=== PATIENT | male | born 1955 | race Caucasian/White ===

== ENCOUNTER 2018-06-07 09:37 | Emergency (ER) | payer OTHER ==
--- NOTE | 2018-06-07 10:12 | EDPHY ---
H & P Time Seen by Provider: 06/07/18 10:07 HPI/ROS: Chief complaint. Chest pain HPI. 63-year-old male presents emergency department with 3 day history of left anterior chest discomfort. It is constant. Described as dull. No radiation. No change with deep breathing or exertion. He has also had some chills and lightheadedness and shakiness over the past 3 days. No fever. He has had similar symptoms previously of chest pain and had a treadmill 6 months ago that was normal. He has no abdominal pain or nausea vomiting diarrhea. No rash. No urinary symptoms. No unusual leg pain or swelling. ROS 10 systems were reviewed and negative with the exception of the elements mentioned in the history of present illness Past Medical/Surgical History: GERD, dyslipidemia Social History: , nonsmoker, no alcohol Smoking Status: Never smoked Physical Exam: General Appearance: Alert well-developed male mild distress vital signs are stable Eyes: Pupils equal and round no pallor or injection. ENT, Mouth: Mucous membranes are moist. Respiratory: There are no retractions, lungs are clear to auscultation. Cardiovascular: Regular rate and rhythm. Gastrointestinal: Abdomen is soft and nontender, no masses, bowel sounds normal. Neurological: Awake and alert, sensory and motor exams grossly normal. Skin: Warm and dry, no rashes. Musculoskeletal: Neck is supple nontender. Extremities symmetrical, full range of motion. Psychiatric: Patient is oriented X 3, there is no agitation. Constitutional: Initial Vital Signs Temperature (C) 36.6 C 06/07/18 09:41 Heart Rate 80 06/07/18 09:41 Respiratory Rate 16 06/07/18 09:41 Blood Pressure 148/96 H 06/07/18 09:41 O2 Sat (%) 93 06/07/18 09:41 O2 Delivery Mode Room Air Allergies/Adverse Reactions: contrast dye Allergy (Severe, Uncoded 06/07/18 09:40) Anaphylaxis Home Medications: Medication Instructions Recorded Aspirin [Aspirin 81mg (OTC)] 81 mg PO DAILY 06/29/15 Ezetimibe/Simvastatin [Vytorin 1 each PO DAILY 06/29/15 10-10 mg Tablet] Medical Decision Making - Diagnostics EKG Interpretation: EKG interpreted by me shows normal sinus rhythm normal interval and axis. QRS is normal there is no significant ST elevation or depression. No arrhythmia. The rate is 66 Procedures: IV normal saline, monitor ED Course/Re-evaluation: Re-evaluation 11:30 a.m. Patient is stable. Patient and I discussed EKG and laboratory findings. We discussed treatment plan including criteria for return importance of follow-up and further evaluation. He is offered admission however feels comfortable being treated as outpatient. He expresses understanding and agreement to our conversation Differential Diagnosis: Patient has recurrent left chest pain. Currently the chest discomfort has been there for 3 days. His troponin and EKG are normal. Does not meet criteria or have symptoms suggestive of pulmonary embolus. He was concerned that he had flu or viral syndrome. His symptoms are not worse with exertion or position. Or deep breathing - Data Points Laboratory Results: Laboratory Results 06/07/18 09:54 06/07/18 09:54 06/07/18 06/07/18 06/07/18 09:57 09:54 09:54 WBC 7.23 10^3/uL 10^3/uL (3.80-9.50) RBC 5.35 10^6/uL 10^6/uL (4.40-6.38) Hgb 16.5 g/dL g/dL (13.7-17.5) Hct 46.8 % % (40.0-51.0) MCV 87.5 fL fL (81.5-99.8) MCH 30.8 pg pg (27.9-34.1) MCHC 35.3 g/dL g/dL (32.4-36.7) RDW 11.9 % % (11.5-15.2) Plt Count 231 10^3/uL 10^3/uL (150-400) MPV 9.4 fL fL (8.7-11.7) Neut % (Auto) 65.7 % % (39.3-74.2) Lymph % (Auto) 22.5 % % (15.0-45.0) [place] % (Auto) 7.2 % % (4.5-13.0) Eos % (Auto) 3.6 % % (0.6-7.6) Baso % (Auto) 0.6 % % (0.3-1.7) Nucleat RBC Rel Count 0.0 % % (0.0-0.2) Absolute Neuts (auto) 4.75 10^3/uL 10^3/uL (1.70-6.50) Absolute Lymphs (auto) 1.63 10^3/uL 10^3/uL (1.00-3.00) Absolute Monos (auto) 0.52 10^3/uL 10^3/uL (0.30-0.80) Absolute Eos (auto) 0.26 10^3/uL 10^3/uL (0.03-0.40) Absolute Basos (auto) 0.04 10^3/uL 10^3/uL (0.02-0.10) Absolute Nucleated RBC 0.00 10^3/uL 10^3/uL (0-0.01) Immature Gran % 0.4 % % (0.0-1.1) Immature Gran # 0.03 10^3/uL 10^3/uL (0.00-0.10) Sodium 141 mEq/L mEq/L (135-145) Potassium 4.3 mEq/L mEq/L (3.3-5.0) Chloride 102 mEq/L mEq/L (97-110) Carbon Dioxide 27 mEq/l mEq/l (22-31) Anion Gap 12 mEq/L mEq/L (6-14) BUN 14 mg/dL mg/dL (7-23) Creatinine 1.2 mg/dL mg/dL (0.7-1.3) Estimated GFR > 60 Glucose 109 mg/dL H mg/dL (70-100) Calcium 10.0 mg/dL mg/dL (8.5-10.4) POC Troponin I 0.01 ng/mL ng/mL (0.00-0.08) Point of Care Test Results: Chemistry 06/07/18 09:57 POC Troponin I 0.01 ng/mL ng/mL (0.00-0.08) Departure - Departure Disposition: Home, Routine, Self-Care Clinical Impression: Chest pain Condition: Good Instructions: Chest Pain (ED) Additional Instructions: Easy activity. Drink plenty of fluids. Return for worsening chest discomfort or trouble breathing Recheck in 2 days for continuing symptoms Referrals: Kaylah Monae MD [Primary Care Provider] - 2-3 days, if not improved
[2018-06-07 10:26] LABS: PLATELET COUNT 231 10^3/uL (150-400)
[2018-06-07 11:46] VITALS: BP 140/89
--- NOTE | 2018-06-07 14:03 | CPEKG ---
Test Reason : OPEN Blood Pressure : / mmHG Vent. Rate : 066 BPM Atrial Rate : 068 BPM P-R Int : 215 ms QRS Dur : 091 ms QT Int : 422 ms P-R-T Axes : 048 047 044 degrees QTc Int : 443 ms Sinus rhythm Abnormal R-wave progression, early transition Confirmed by Gavin Sandoval ([id number]) on 06/07/2018 2:03:18 PM Referred By: Confirmed By:Gavin Sandoval
== END 2018-06-07 11:46 | disposition home or self-care (01) ==
DX: R07.9 Chest pain, unspecified (principal)
CPT/HCPCS: 84484-PO

== ENCOUNTER → 2019-01-04 | Outpatient (CLI) | payer OTHER | LOC: BMCIMAGING 12:08 | PROVIDERS: ATTEND Internal Medicine | DX: R22.1 Localized swelling, mass and lump, neck (principal) | CPT/HCPCS: 76536-PO ==